=== PATIENT | male | born 1960 | race Caucasian/White ===

== ENCOUNTER → 2017-04-08 | Outpatient (CLI) | payer OTHER | END | disposition home or self-care (01) | LOC: CFH 13:53 | PROVIDERS: ATTEND Internal Medicine Cardiovascular Disease | DX: I08.1 Rheumatic disorders of both mitral and tricuspid valves (principal); Z95.2 Presence of prosthetic heart valve | CPT/HCPCS: 93306 ==

== ENCOUNTER → 2017-11-25 | Outpatient (CLI) | payer OTHER ==
[~2017-11-25] MED LIST: APIX5TAB PO; ASPI-496 PO; FLEC100T PO; OMNIPAQUE 350 MG/ML, 150 ML BOTTLE ONE; flovent diskus INH
== END | disposition home or self-care (01) ==
LOC: CFH 12:27
PROVIDERS: ATTEND Internal Medicine Cardiovascular Disease
DX: I48.91 Unspecified atrial fibrillation (principal)
CPT/HCPCS: 75572; Q9967

== ENCOUNTER 2017-11-26 06:24 | Observation (INO) | payer OTHER ==
[2017-11-25 13:14] LABS: BASOPHILS # (AUTO) 0.02 x10^3/uL (0-0.1); BASOPHILS % (AUTO) 0 % (0-1); EOSINOPHILS # (AUTO) 0.06 x10^3/uL (0-0.4); EOSINOPHILS % (AUTO) 1 % (1-7); LYMPHOCYTES # (AUTO) 0.85 x10^3/uL (1-3.4); LYMPHOCYTES % (AUTO) 15 % (22-44); MD NO; MEAN CORPUSCULAR HEMOGLOBIN 30.2 pg (27.5-34.5); MEAN CORPUSCULAR HGB CONC 33.9 g/dL (33.2-36.2); MEAN CORPUSCULAR VOLUME 89.3 fL (81-97); MEAN PLATELET VOLUME 7.8 fL (7.4-10.4); MONOCYTES # (AUTO) 0.43 x10^3/uL (0.2-0.8); MONOCYTES % (AUTO) 8 % (2-9); NEUTROPHILS # (AUTO) 4.25 x10^3/uL (1.8-6.8); NEUTROPHILS % (AUTO) 76 % (42-75); PLATELET COUNT 208 x10^3/uL (130-400); RED BLOOD COUNT 5.13 x10^6/uL (4.38-5.82); RED CELL DISTRIBUTION WIDTH 13.9 % (9.4-14.8)
[2017-11-25 13:24] LABS: ANION GAP 7 mmol/L (5-15); CALCIUM 8.2 mg/dL (8.5-10.1); CHLORIDE 105 mmol/L (98-107); CREATININE 0.97 mg/dL (0.7-1.3)
[2017-11-25 13:25] LABS: ALANINE AMINOTRANSFERASE 31 U/L (12-78); ALBUMIN 3.8 g/dL (3.4-5.0)
[2017-11-25 13:27] LABS: ALKALINE PHOSPHATASE 47 U/L (45-117); BILIRUBIN,TOTAL 0.7 mg/dL (0.2-1.0); TOTAL PROTEIN 7.2 g/dL (6.4-8.2)
[~2017-11-26] VITALS: Ht 170.2 cm; Wt 63.2 kg
[~2017-11-26 06:24] MED LIST changes: -APIX5TAB PO; -FLEC100T PO; -OMNIPAQUE 350 MG/ML, 150 ML BOTTLE ONE
[2017-11-26] MEDS ORDERED: SODIUM CHLORIDE 0.9% 1,000 ML IV SCH (06:29)
[2017-11-26 06:37] VITALS: BP 148/87
[2017-11-26] MEDS ORDERED: MIDAZOLAM 1 MG/ML, 2ML ONE (07:48)
[2017-11-26] MEDS ORDERED: FENTANYL PF 250 MCG/5ML ONE (07:49)
[2017-11-26] MEDS ORDERED: GLYCOPYRROLATE 0.2MG/1ML, 5ML ONE (08:11)
[2017-11-26] MEDS ORDERED: ONDANSETRON 2MG/ML, 2ML ONE (08:11)
[2017-11-26] MEDS ORDERED: SUCCINYLCHOLINE 20 MG/ML, 10ML ONE (08:11)
[2017-11-26] MEDS ORDERED: CEFAZOLIN 1,000 MG ONE (08:11)
[2017-11-26] MEDS ORDERED: PROPOFOL 10 MG/ML, 20ML ONE (08:11)
[2017-11-26] MEDS ORDERED: ROCURONIUM 10 MG/ML,10ML ONE (08:11)
[2017-11-26] MEDS ORDERED: DEXAMETHASONE 4 MG/ML, 1ML ONE (08:11)
[2017-11-26] MEDS ORDERED: PROTAMINE SULFATE 10 MG/ML, 5ML ONE (08:21)
[2017-11-26] MEDS ORDERED: HEPARIN 1,000 UNITS/ML, 10ML ONE (08:22)
[2017-11-26] MEDS ORDERED: ADENOSINE 6 MG/2 ML ONE ×2 (09:12)
[2017-11-26] MEDS ORDERED: ISOPROTERENOL 0.2MG/ML, 5ML ONE (10:42)
[2017-11-26] MEDS ORDERED: ZOLPIDEM 5MG TABLET PO PRN (12:00)
[2017-11-26] MEDS ORDERED: ACETAMINOPHEN 325 MG TABLET PO PRN ×2 (12:00→12:30)
[2017-11-26] MEDS ORDERED: FENTANYL PF 100 MCG/2ML IV PRN (12:30)
[2017-11-26] MEDS ORDERED: MEPERIDINE/PF 25MG/0.5ML IVPush PRN (12:30)
[2017-11-26] MEDS ORDERED: PROMETHAZINE 25 MG/ML, 1ML IV PRN (12:30)
[2017-11-26] MEDS ORDERED: hydrALAzine 20 MG/ML, 1ML IV PRN (12:30)
[2017-11-26] MEDS ORDERED: LABETALOL 5MG/ML, 20ML IV PRN (12:30)
[2017-11-26] MEDS ORDERED: PROMETHAZINE 12.5 MG SUPP PR PRN (12:30)
[2017-11-26] MEDS ORDERED: OXYcodone 5 MG/5 ML ORAL.SOL UDC PO PRN (12:30)
[2017-11-26] MEDS ORDERED: MORPHINE SULFATE 4 MG/ML, 1ML IVPush PRN (12:30)
[2017-11-26] MEDS ORDERED: LORazepam 2 MG/ML, 1ML IVPush PRN (12:30)
[2017-11-26] MEDS ORDERED: MIDAZOLAM 1 MG/ML, 2ML IV PRN (12:30)
[2017-11-26] MEDS ORDERED: ALBUTEROL SULFATE 2.5 MG/3 ML NPPB PRN (12:30)
[2017-11-26] MEDS ORDERED: ONDANSETRON ODT 8 MG PO PRN (12:30)
[2017-11-26] MEDS ORDERED: ONDANSETRON 2MG/ML, 2ML IV PRN (12:30)
[2017-11-26] MEDS: APIXABAN 5 MG TABLET PO SCH ×2 (14:16→19:47)
[2017-11-26] MEDS: FLECAINIDE 100MG TABLET PO SCH (14:16)
[2017-11-26 15:32] VITALS: BP 104/69
[2017-11-26 19:54] VITALS: BP 99/66
[2017-11-27] MEDS: FLECAINIDE 100MG TABLET PO SCH ×2 (00:01→12:00)
[2017-11-27 03:02] VITALS: BP 104/67
[2017-11-27] MEDS: APIXABAN 5 MG TABLET PO SCH (07:46)
[2017-11-27 08:37] VITALS: BP 114/72
[2017-11-27] MEDS ORDERED: APIX5TAB PO (11:33)
[2017-11-27] MEDS ORDERED: FLEC100T PO (11:33)
== END 2017-11-27 13:40 | disposition home or self-care (01) ==
LOC: CACL 06:24 → ORIP 11:37 → 5SO 13:21 → DCLOUNGE 11-27 13:32
PROVIDERS: ADMIT Internal Medicine Cardiovascular Disease; ATTEND Internal Medicine Cardiovascular Disease
DX: I48.91 Unspecified atrial fibrillation (principal); I48.92 Unspecified atrial flutter; I47.1 Supraventricular tachycardia
CPT/HCPCS: 36415; 71046; 80053; 85025; 93308; 93312; 93321; 93325; 93613; 93623; 93655; 93656; 93662; C1730; C1731; C1732; C1759; C1766; C1893; C1894; G0378; J0153; J0330; J0690; J1100; J1644; J2250; J2405; J2704; J2720; J3010; J3490